=== PATIENT | female | born 1970 | race American Indian/Alaskan Native ===

== ENCOUNTER 2016-09-13 09:40 | Emergency (ER) | payer BC ==
[2016-09-13 09:51] VITALS: BP 159/105
--- NOTE | 2016-09-13 11:39 | Emergency Department Report ---
HPI - General Chief Complaint: Laceration/Recheck/Suture Time Seen by Provider: 09/13/16 11:36 - HPI HPI: 45-year-old female presents today for suture removal. Patient states that she has history of depression and had cut her wrists on August 28. She was seen at [facility] and wrist were sutured. Denies drainage or bleeding from wound site. Denies fever, chills, nausea, vomiting, chest pain, shortness of breath, abdominal pain. Denies suicidal or homicidal ideations. ED Past Medical Hx - Past Medical History Previous Medical History?: Yes Hx Asthma: Yes - Surgical History Past Surgical History?: Yes Additional Surgical History: tubal ligation - Social History Smoking Status: Never Smoker Substance Use Type: Prescribed - Medications Home Medications: Home Medications Medication Instructions Recorded Confirmed Last Taken Type ALBUTEROL NEB's [Proventil] 2.5 mg IH TID PRN 08/28/16 08/28/16 Unknown History Mometasone/Formoterol [Dulera 200 2 puff IH BID 08/28/16 08/28/16 Unknown History Mcg/5 Mcg Inhaler] Sulfamethoxazole/Trimethoprim 1 each PO BID #14 tablet 08/28/16 Unknown Rx [Bactrim DS TAB] ED Review of Systems ROS: Stated complaint: STITCHES REMOVAL Other details as noted in HPI Constitutional: denies: chills, fever, malaise Eyes: denies: eye pain ENT: denies: ear pain, throat pain, congestion Respiratory: denies: cough, shortness of breath, wheezing Cardiovascular: denies: chest pain, palpitations Endocrine: no symptoms reported Gastrointestinal: denies: abdominal pain, nausea, vomiting Neurological: denies: headache, weakness, numbness, paresthesias Physical Exam - Physical Exam Vital Signs: Vital Signs 09/13/16 09:48 Temperature 98.4 F Pulse Rate 96 H Respiratory 20 Rate Blood Pressure 159/105 O2 Sat by Pulse 98 Oximetry Physical Exam: GENERAL: The patient is well-developed and well-nourished. Patient is in NAD. HEAD: Normocephalic. Atraumatic. CHEST/LUNGS: Positive for minimal wheezing over the left lung boateng. HEART/CARDIOVASCULAR: Regular rate and rhythm. No murmurs, rubs or gallops. ABDOMEN: Abdomen is soft, nontender. Bowel sounds normoactive. No guarding or rebound tenderness. BILATERAL WRISTS: Linear, well-healed lacerations noted over the ventral aspect of bilateral wrist. No bleeding or drainage noted. Normal sensation. 2 point discrimination intact. Peripheral pulses intact. Capillary refill less than 2 seconds. NEURO: Alert and oriented x 3. Normal gait. ED Course Vital Signs 09/13/16 09:48 Temperature 98.4 F Pulse Rate 96 H Respiratory 20 Rate Blood Pressure 159/105 O2 Sat by Pulse 98 Oximetry - Procedure Description Procedures done: The wound demonstrates no evidence of infection with adequate tensile strength at the wound margins at this time to warrant suture removal. Sutures were removed individually using and forceps, with a total of 12 running sutures removed from R wrist and 8 running sutures removed from L wrist. Re- examination of the wound following the procedure reveals no evidence of any retained foreign bodies and no dehiscence. Wound care precautions were given to the patient verbally. ED Medical Decision Making - Lab Data Vital Signs 09/13/16 09:48 Temperature 98.4 F Pulse Rate 96 H Respiratory 20 Rate Blood Pressure 159/105 O2 Sat by Pulse 98 Oximetry - Medical Decision Making 45-year-old female presents today for suture removal of bilateral wrists. Running sutures were removed, the patient tolerated the procedure well. Wound instructions provided. Informed patient that she is wheezing and her blood pressure is elevated. Patient states that she has a follow-up appointment with her primary care later today and will take care of it. Patient is in no acute distress at this time. She will be discharged home and is encouraged to follow up with a primary care provider. She is encouraged to return to the emergency room for any worsening symptoms. Critical care attestation.: If time is entered above; I have spent that time in minutes in the direct care of this critically ill patient, excluding procedure time. ED Disposition Clinical Impression: Visit for suture removal Disposition: DISCHARGED TO HOME OR SELFCARE Is pt being admited?: No Does the pt Need Aspirin: No Condition: Stable Instructions: Suture Removal (ED) Additional Instructions: Follow-up with primary care provider. Return to the emergency department if symptoms worsen. Referrals: PRIMARY CAREMD [Primary Care Provider] - 3-5 Days [facility] [Outside] - 3-5 Days Forms: Work/School Release Form(ED) Time of Disposition: 11:46
== END 2016-09-13 11:48 | disposition home or self-care (01) ==
LOC: ED 09:40
DX: S61.502D Unspecified open wound of left wrist, subsequent encounter (principal); S61.501D Unspecified open wound of right wrist, subsequent encounter; J45.909 Unspecified asthma, uncomplicated